=== PATIENT | female | born 1995 | race Caucasian/White ===

== ENCOUNTER 2019-10-31 08:58 | Outpatient (CLI) | payer BC ==
--- NOTE | 2019-10-31 11:12 | ULT ---
ULTRASOUND GALLBLADDER RIGHT UPPER QUADRANT: Date: 10/31/2019 HISTORY: Pain. COMPARISON: None. FINDINGS: Real-time Glover scale and color evaluation of the right upper quadrant of the abdomen is performed. FINDINGS: Pancreas not well seen. IVC unremarkable. Mild increased hepatic echotexture without mass. Liver measures 16.9 cm in length. Portal vein is patent with antegrade flow. Common duct measures 3.0 mm. There is cholelithiasis without cholecystitis. There is mild debris within the gallbladder. There is mild focus of altered echogenicity within the medullary cavity intrapolar right kidney which is mildly echogenic. This is not measured by the technologist. Right kidney measures 11.2 x 4.7 x 5. 1 cm. Mildly prominent intrahepatic biliary system. IMPRESSION: 1. Cholelithiasis without cholecystitis. 2. Mild intrahepatic biliary dilatation with normal common bile duct. Liver protocol MRI recommended . 3. Altered increased echogenicity within the medullary cavity intrapolar right kidney. Although this could represent a column of Rj, this should be further interrogated on the liver protocol MRI wi th and without contrast. 4. Mild hepatic steatosis. POS: [facility]
== END 2019-10-31 08:59 | disposition home or self-care (01) ==
LOC: SCSULT 08:58
PROVIDERS: ATTEND Internal Medicine Gastroenterology
DX: R10.13 Epigastric pain (principal); R10.84 Generalized abdominal pain; K59.00 Constipation, unspecified; K80.20 Calculus of gallbladder without cholecystitis without obstruction; K76.0 Fatty (change of) liver, not elsewhere classified; R93.421 Abnormal radiologic findings on diagnostic imaging of right kidney; Z80.0 Family history of malignant neoplasm of digestive organs
CPT/HCPCS: 76705

== ENCOUNTER 2019-11-17 12:13 | Day surgery (SDC) | payer BC ==
[2019-11-11 15:19] VITALS: BMI 27.4
[~2019-11-17 12:13] MED LIST: Dexamethasone 20 MG/5 ML VIAL ONE; Glycopyrrolate 0.2 MG/ML 5 ML SYRINGE ONE; Lidocaine 1% PF 5 ML VIAL ONE; Ondansetron PF 4 MG/2 ML Vial ONE; PROPOFOL 200 MG/20 ML VIAL ONE; Rocuronium Bromide 10 MG/ML (10ML VIAL) ONE
[2019-11-17] MEDS ORDERED: Ketorolac Tromethamine 30 MG/ML VIAL ONE (12:21)
[2019-11-17] MEDS ORDERED: Acetaminophen 500 MG TAB ONE (12:22)
[2019-11-17] MEDS ORDERED: Levofloxacin 500 mg/D5W 100 ml Premix Bag ONE (14:20)
[2019-11-17] MEDS ORDERED: Bupivacaine 0.25% HCL 30 ML VIAL ONE (15:39)
[2019-11-17] MEDS ORDERED: Lidocaine 1% w/Epinephrine 1:100K 20 ML VIAL ONE (15:39)
[2019-11-17] MEDS ORDERED: Lidocaine 2% Jelly 5 ML TUBE ONE (15:42)
[2019-11-17] MEDS ORDERED: Fentanyl 100 MCG/2 ML VIAL ONE ×3 (15:42→17:23)
[2019-11-17] MEDS ORDERED: HYDROmorphone 0.5 MG/0.5 ML SYRINGE ONE (15:42)
[2019-11-17] MEDS ORDERED: Midazolam HCl 2 mg/2 ml Vial ONE (15:42)
[2019-11-17] MEDS ORDERED: HYDROcodone/Acetaminophen 5/325 mg Tablet ONE (17:35)
[2019-11-17] MEDS ORDERED: Ondansetron ODT 8 MG TAB ONE (18:22)
--- NOTE | 2019-11-18 13:20 | OP ---
DATE OF PROCEDURE: 11/17/2019 PREOPERATIVE DIAGNOSIS: Symptomatic cholelithiasis. POSTOPERATIVE DIAGNOSIS: Symptomatic cholelithiasis. OPERATION PERFORMED: Laparoscopic cholecystectomy. ANESTHESIA: General endotracheal. INDICATIONS: The patient is a 24-year-old white female. She presents with symptoms referable to her gallbladder and ultrasound-proven cholelithiasis. She is taken to the operating room at this time for laparoscopic cholecystectomy. PROCEDURE IN DETAIL: Informed consent was obtained. The patient was taken to the operating room where general endotracheal anesthesia was obtained with the patient in the supine position. The abdomen was prepped with Betadine and draped in the usual sterile fashion. 0.25% Marcaine with epinephrine was infiltrated below the umbilicus and a 10 mm infraumbilical incision was created. A Veress needle was passed through this incision into the peritoneal cavity. A pneumoperitoneum was established using carbon dioxide up to a pressure of 15 mmHg. Local anesthetic was infiltrated and 3 additional 5 mm right upper quadrant incisions were created. Through the mid incision, a 5 mm port was passed into the peritoneal cavity. The camera was passed through this port and under direct vision, an 11 port was passed through the infraumbilical incision. The camera was replaced through this port, and under direct vision, 2 additional 5 mm ports were passed through the incisions already created. The gallbladder was grasped and retracted in a cephalad direction. Minimal adhesions were bluntly stripped away from the apex of the gallbladder, and the apex was retracted laterally and inferiorly. Careful dissection was carried out to the apex of the gallbladder to identify the cystic duct and cystic artery. These were each carefully dissected circumferentially. The duct was of normal caliber. Both the duct and the artery were divided between clips, leaving 2 on the side to remain within the abdomen. The gallbladder was then dissected out of the gallbladder fossa using electrocautery and removed through the infraumbilical port site. The fascia was closed with 0 Vicryl suture and a GraNee needle. The right upper quadrant was inspected and irrigated. All irrigant was aspirated. All ports and instruments were removed under direct vision. Pneumoperitoneum was carefully evacuated. Additional local anesthetic was infiltrated into each port site. The skin edges were approximated with 4-0 Monocryl subcuticular sutures, and Dermabond was placed externally. There were no complications. The patient tolerated the procedure well and was taken to the recovery room in stable condition. FINDINGS: The patient's gallbladder had minimal inflammatory change. She did, however, have an obvious gallstone present within the fundus. The duct was small and noninflamed and a cholangiogram was not obtained. She was taken to the recovery room in stable condition. There had been essentially no blood loss during the operation and no complications. Job ID: [id number]
== END 2019-11-17 18:35 | disposition home or self-care (01) ==
LOC: SDC 12:13
PROVIDERS: ATTEND Specialist
PROC: 0FT44ZZ Resection of Gallbladder, Percutaneous Endoscopic Approach (ICD-10-PCS; principal; 2019-11-17)
DX: K80.10 Calculus of gallbladder with chronic cholecystitis without obstruction (principal); Z79.899 Other long term (current) drug therapy; Z88.1 Allergy status to other antibiotic agents; Z88.5 Allergy status to narcotic agent
CPT/HCPCS: 88304; J1100; J1170; J1885; J1956; J2250; J2405; J2704; J3010; Q0162; S0020